=== PATIENT | female | born 1945 | race Caucasian/White ===

== ENCOUNTER 2021-12-15 19:21 | Emergency (ER) | payer MEDICARE, OTHER ==
--- NOTE | 2021-12-15 19:57 | ERPHSYRPT ---
- History of Present Illness Time Seen by Provider: 12/15/21 19:26 Source: patient Exam Limitations: no limitations Patient Subjective Stated Complaint: pt states "The pain began 10 minutes ago. I was worried about a clot." Triage Nursing Assessment: pt ambulated into the er; pt is axo x4; c/o left leg pain; pt states 10/10 pain to left upper leg; pt denies fall or injury to LLE; strong pedal; no redness or warth present to LLE; good cap refill to LLE; tachycardic Physician History: 46 years old female with history of atrial fibrillation not anticoagulated presented to the ER with sudden onset left lateral thigh pain moderate intensity, sharp in nature started almost half an hour prior to arrival, aggravated with movements and feeling better with lying down. Denies any redness swelling leg/lower extremity. No fall or trauma reported. Patient is worried about DVT. Timing/Duration: hour(s) (0.5), sudden, improved Severity: moderate Modifying Factors: Improves With: rest. Worsens With: movement Associated Symptoms: denies symptoms Allergies/Adverse Reactions: Qyqpmox-FAI-McV Reductase Inhibitor [Gxjjrko-Ote-Cjs Reductase Inhibitor] Allergy (Verified 12/15/21 19:31) Lightheadedness Home Medications: Ascorbic Acid 500 mg [Vitamin C 500 MG] 500 mg PO DAILY 04/15/14 [History] Aspirin 81 gm Chew [Baby Aspirin 81 mg Chew] 81 mg PO DAILY 04/15/14 [History] Biotin 1 mcg PO DAILY 04/15/14 [History] Cholecalciferol (Vitamin D3) [Vitamin D] 2,000 unit PO DAILY 04/15/14 [History] Cinnamon Bark [Cinnamon] 1,000 mg PO DAILY 04/15/14 [History] Coconut Oil 1,000 mg PO DAILY 04/15/14 [History] Fish Oil/Dha/Epa [Fish Oil 1,200 mg Fish Oil] 1 each PO DAILY 04/15/14 [History] Lactobacillus Combination No.4 [Probiotic] 1 each PO HS 04/15/14 [History] Lutein 20 mg PO DAILY 04/15/14 [History] Magnesium Oxide/Magnesium [Magnesium 300 mg Capsule] 1 tab PO TID 04/15/14 [History] Metoprolol Tartrate 25 mg PO BID 04/15/14 [History] Ubidecarenone/Vit E Acet [Co Q-10 100 mg Softgel] 2 each PO DAILY 04/15/14 [History] Hx Tetanus, Diphtheria Vaccination/Date Given: No Hx Influenza Vaccination/Date Given: No Hx Pneumococcal Vaccination/Date Given: No Travel Risk - International Travel Have you traveled outside of the country in past 3 weeks: No - Coronavirus Screening Are you exhibiting any of the following symptoms?: No Close contact with a COVID-19 positive Pt in past 14-21 Days: No - Vaccine Status Have you recieved a Covid-19 vaccination: No - Review of Systems Constitutional: No Symptoms Ears, Nose, & Throat: No Symptoms Respiratory: No Symptoms Cardiac: No Symptoms Abdominal/Gastrointestinal: No Symptoms Genitourinary Symptoms: No Symptoms Musculoskeletal: Myalgias Neurological: No Symptoms Psychological: No Symptoms Endocrine: No Symptoms Hematologic/Lymphatic: No Symptoms - Past Medical History Pertinent Past Medical History: Yes Neurological History: No Pertinent History ENT History: Cataracts Cardiac History: High Cholesterol, Other Respiratory History: No Pertinent History Endocrine Medical History: Hypoglycemia Musculoskeletal History: No Pertinent History GI Medical History: No Pertinent History History: No Pertinent History Psycho-Social History: No Pertinent History Female Reproductive Disorders: No Pertinent History Other Medical History: states irreg. heart beat - Past Surgical History Past Surgical History: Yes Neuro Surgical History: No Pertinent History Cardiac: No Pertinent History Respiratory: No Pertinent History Gastrointestinal: No Pertinent History Genitourinary: No Pertinent History Musculoskeletal: Orthopedic Surgery Female Surgical History: No Pertinent History, Other Other Surgical History: left shoulder rotat.cuff repair",vaginal/uterine polyps removed" - Social History Smoking Status: Never smoker Exposure to second hand smoke: No Drug Use: none Patient Lives Alone: No - Nursing Vital Signs Nursing Vital Signs: Initial Vital Signs Temperature 99.2 F 12/15/21 19:31 Pulse Rate 109 H 12/15/21 19:31 Respiratory Rate 24 12/15/21 19:31 Blood Pressure 119/81 12/15/21 19:31 O2 Sat by Pulse Oximetry 100 12/15/21 19:31 Pain Scale Pain Intensity 0 - Physical Exam General Appearance: no apparent distress, alert Eye Exam: PERRL/EOMI Ears, Nose, Throat Exam: normal ENT inspection Neck Exam: normal inspection, supple, full range of motion Respiratory Exam: normal breath sounds, lungs clear Cardiovascular Exam: normal heart sounds, tachycardia, irregular Back Exam: normal inspection, normal range of motion Extremity Exam: normal inspection, normal range of motion, pelvis stable, tenderness (Lt. lateral thigh), No brett's sign Neurologic Exam: alert, oriented x 3, track announcer II-XII nml as tested Skin Exam: normal color SpO2 Interpretation: normal SpO2: 100 O2 Delivery: Room Air Ordered Tests: Active Orders 24 hr Category Date Time Status VENOUS UNILAT/LIMITED EXTREMIT [US] Stat Exams 12/15/21 20:54 Taken - Progress Progress: improved Progress Note: 12/15/21 21:20 DVT ruled out per prelim US report. recommended tylenol as needed and outpatient follow up. Counseled pt/family regarding: diagnosis, need for follow-up, rad results - Departure Departure Disposition: Home Clinical Impression: Leg pain Qualifiers: Laterality: left Qualified Code(s): M79.605 - Pain in left leg Condition: Stable Critical Care Time: No Referrals: VIRIDIANA JIMÉNEZ MD [ACTIVE STAFF] - Follow Up with PCP/3 days Instructions: Deep Vein Thrombosis (Blood Clots in the Legs) Additional Instructions: take Tylenol as needed, outpatient follow up with PCP for re evaluation. return for worsening
[2021-12-15 21:10] VITALS: BP 129/89; PULSE 77
[2021-12-15 21:24] VITALS: O2SAT 100
--- NOTE | 2021-12-16 08:47 | XRAY ---
Indication: Left upper leg pain. Two-dimensional sonogram and color Doppler imaging of the major venous vessels of the left leg performed. Comparison: None No thrombus seen in the examined deep venous vessels of the left leg including greater saphenous vein. Veins demonstrate normal compressibility. Venous waveforms are normal with and without augmentation. Impression: Left leg negative for DVT. Comment: Preliminary report was given.
== END 2021-12-15 21:34 | disposition home or self-care (01) ==
LOC: ED 19:21
DX: M79.652 Pain in left thigh (principal); I48.91 Unspecified atrial fibrillation; E78.5 Hyperlipidemia, unspecified; Z79.899 Other long term (current) drug therapy
CPT/HCPCS: 93971; 99283

== ENCOUNTER 2022-06-16 22:38 | Observation (INO) | payer MEDICARE, OTHER ==
[2022-06-16] MEDS ORDERED: Zofran 4 MG/2 ML VIAL IV ONE (22:53)
--- NOTE | 2022-06-16 23:13 | ERPHSYRPT ---
- History of Present Illness Time Seen by Provider: 06/16/22 22:42 Historian: patient, EMS Exam Limitations: no limitations Patient Subjective Stated Complaint: pt states "I was sitting in the chair and it felt this pressure in the middle of my chest." Triage Nursing Assessment: pt came into the er via ambulance; pt is axo x4; c/o chest pain; pt denies pain; pt states pain was relieved with nitro; pt states "I am under a lot of stress. My went to the intermediate last week. I have to meet with the cancer doctor Sunday."; clear apical pulse; strong carrol radial pulses; strong carrol pedal pulses; clear lung sounds in all lobes; no edema p resent; vitals wnl; skin PDW Physician History: 77-year-old female with a history of atrial fibrillation, recent diagnosis of ovarian cancer on chemotherapy presented in the ER with chief complaint of sudden onset central chest pressure more on the right side almost 30 minutes prior to arrival with associated nausea she rates it was 8/10 intensity, was given nitro and aspirin by EMS and currently almost completely resolved. She took Zofran at home and nausea is better now as well. Denies any difficulty breathing. No history of CAD. Denies any fever chills cough. Patient has port placement on the right side last week. Timing/Duration: hour(s) (0.5), sudden, improved Activities at Onset: rest Quality: pressure Location: substernal, central Chest Pain Radiation: no radiation Severity of Pain-Max: moderate Modifying Factors: Improves With: nitroglycerin Associated Symptoms: nausea, No shortness of breath Prior Chest Pain/Cardiac Workup: no prior chest pain Nitro Today/Relief: 0.4 mg x 1, provided by EMS Aspirin Treatment Today: 81 mg x 4, provided by EMS Allergies/Adverse Reactions: Ejigvds-RRQ-PvG Reductase Inhibitor [Qasjcap-Zla-Oju Reductase Inhibitor] Allergy (Verified 06/16/22 22:47) Lightheadedness Home Medications: Ascorbic Acid 500 mg [Vitamin C 500 MG] 500 mg PO DAILY 04/15/14 [History] Aspirin 81 gm Chew [Baby Aspirin 81 mg Chew] 81 mg PO DAILY 04/15/14 [History] Biotin 1 mcg PO DAILY 04/15/14 [History] Cholecalciferol (Vitamin D3) [Vitamin D] 2,000 unit PO DAILY 04/15/14 [History] Cinnamon Bark [Cinnamon] 1,000 mg PO DAILY 04/15/14 [History] Coconut Oil 1,000 mg PO DAILY 04/15/14 [History] Fish Oil/Dha/Epa [Fish Oil 1,200 mg Fish Oil] 1 each PO DAILY 04/15/14 [History] Lactobacillus Combination No.4 [Probiotic] 1 each PO HS 04/15/14 [History] Lutein 20 mg PO DAILY 04/15/14 [History] Magnesium Oxide/Magnesium [Magnesium 300 mg Capsule] 1 tab PO DAILY 04/15/14 [History] Metoprolol Tartrate 25 mg PO BID 04/15/14 [History] Ubidecarenone/Vit E Acet [Co Q-10 100 mg Softgel] 1 each PO DAILY 04/15/14 [History] ALPRAZolam 0.25 MG [xanAX 0.25 MG] 0.25 mg PO DAILY PRN 06/17/22 [History] Lisinopril 10 mg [Zestril 10 MG] 10 mg PO DAILY 06/17/22 [History] Ondansetron [Ondansetron Odt ] 4 mg SL Q6H PRN PRN 06/17/22 [History] Prochlorperazine Maleate [Compazine] 10 mg PO Q6HPRN PRN 06/17/22 [History] dexAMETHasone [Dexamethasone] 4 mg PO HS PRN PRN 06/17/22 [History] Hx Tetanus, Diphtheria Vaccination/Date Given: No Hx Influenza Vaccination/Date Given: No Hx Pneumococcal Vaccination/Date Given: No Travel Risk - International Travel Have you traveled outside of the country in past 3 weeks: No - Coronavirus Screening Are you exhibiting any of the following symptoms?: No Close contact with a COVID-19 positive Pt in past 14-21 Days: No - Vaccine Status Have you recieved a Covid-19 vaccination: No - Review of Systems Constitutional: No Symptoms Eyes: No Symptoms Ears, Nose, & Throat: No Symptoms Respiratory: No Symptoms Cardiac: Chest Pain Abdominal/Gastrointestinal: No Symptoms Genitourinary Symptoms: No Symptoms Musculoskeletal: No Symptoms Neurological: No Symptoms Psychological: Anxiety Endocrine: No Symptoms Hematologic/Lymphatic: No Symptoms Immunological/Allergic: No Symptoms - Past Medical History Pertinent Past Medical History: Yes Neurological History: No Pertinent History ENT History: Cataracts Cardiac History: High Cholesterol, Other Respiratory History: No Pertinent History Endocrine Medical History: Hypoglycemia Musculoskeletal History: No Pertinent History GI Medical History: No Pertinent History History: No Pertinent History Psycho-Social History: No Pertinent History Female Reproductive Disorders: No Pertinent History Other Medical History: states irreg. heart beat - Past Surgical History Past Surgical History: Yes Neuro Surgical History: No Pertinent History Cardiac: No Pertinent History Respiratory: No Pertinent History Gastrointestinal: No Pertinent History Genitourinary: No Pertinent History Musculoskeletal: Orthopedic Surgery Female Surgical History: No Pertinent History, Other Other Surgical History: left shoulder rotat.cuff repair",vaginal/uterine polyps removed" - Social History Smoking Status: Never smoker Exposure to second hand smoke: No Drug Use: none Patient Lives Alone: Yes - Nursing Vital Signs Nursing Vital Signs: Initial Vital Signs Temperature 98.2 F 06/16/22 22:39 Pulse Rate 84 06/16/22 22:39 Respiratory Rate 16 06/16/22 22:39 Blood Pressure 96/65 06/16/22 22:39 O2 Sat by Pulse Oximetry 96 06/16/22 22:39 Pain Scale Pain Intensity 2 - Physical Exam General Appearance: no apparent distress, alert Eye Exam: PERRL/EOMI Ears, Nose, Throat Exam: normal ENT inspection Neck Exam: normal inspection, supple, full range of motion Respiratory Exam: normal breath sounds, lungs clear Cardiovascular Exam: regular rate/rhythm, normal heart sounds Gastrointestinal/Abdomen Exam: soft, normal bowel sounds, No tenderness Back Exam: normal inspection Extremity Exam: normal inspection, normal range of motion, pelvis stable Neurologic Exam: alert, oriented x 3, cooperative Skin Exam: normal color SpO2 Interpretation: normal SpO2: 96 O2 Delivery: Room Air Ordered Tests: Medication Summary Discontinued Medications Generic Name Dose Route Start Last Admin Trade Name Freq PRN Reason Stop Dose Admin Acetaminophen 650 mg 06/17/22 01:56 Acetaminophen 325 Mg Tablet PO 07/17/22 01:55 Q4H PRN PRN PAIN AND/OR FEVER Albuterol/Ipratropium 3 ml 06/17/22 01:56 Ipratropium/Albuterol Sulfate 3 Ml Ampul.Neb IH 07/17/22 01:55 Q4HPRN PRN SHORTNESS OF BREATH/WHEEZING Sodium Chloride 500 mls @ 500 mls/hr 06/17/22 00:17 06/17/22 01:40 Sodium Chloride 0.9% 500 Ml IV 06/17/22 01:16 Infused .Q1H ONE Infusion Sodium Chloride Confirm 06/17/22 00:18 Sodium Chloride 0.9% 500 Ml Administered 06/17/22 00:19 Dose 500 mls @ ud IV .STK-MED ONE Levofloxacin/Dextrose 500 mg in 100 mls @ 100 mls/hr 06/17/22 01:01 06/17/22 01:14 Levofloxacin 500mg/100ml D5w IV 06/17/22 02:00 100 mls/hr STAT STA 100 mls/hr Administration Levofloxacin/Dextrose Confirm 06/17/22 01:14 Levofloxacin 500mg/100ml D5w Administered 06/17/22 01:15 Dose 500 mg in 100 mls @ ud IV .STK-MED ONE Sodium Chloride 1,000 mls @ 100 mls/hr 06/17/22 01:56 06/17/22 02:24 Sodium Chloride 0.9% 1000 Ml IV 07/17/22 01:55 100 mls/hr .Q10H MAHSA Administration Morphine Sulfate 2 mg 06/17/22 01:56 Morphine Sulfate 2 Mg/Ml Inj IV 06/22/22 01:55 Q4H PRN PRN PAIN Ondansetron HCl 4 mg 06/16/22 22:53 06/16/22 23:07 Ondansetron Hcl 4 Mg/2 Ml Vial IV 06/16/22 22:54 Not Given STAT ONE Ondansetron HCl 4 mg 06/17/22 01:56 Ondansetron Hcl 4 Mg/2 Ml Vial IV 07/17/22 01:55 Q6H PRN PRN NAUSEA/VOMITING Pantoprazole Sodium 40 mg 06/17/22 10:00 06/17/22 09:50 Pantoprazole 40 Mg Vial IV 07/17/22 09:59 40 mg Q24H10 MAHSA Administration Lab/Rad Data: Laboratory Result Diagrams 06/16/22 23:15 06/16/22 23:15 Laboratory Results 06/17/22 06/16/22 06/16/22 Range/Units 01:44 23:46 23:15 WBC (4.0-10.5) x10^3/uL RBC (4.1-5.4) x10^6/uL Hgb (12.0-16.0) g/dL Hct (35-47) % MCV (78-100) fL MCH (26-32) pg MCHC (32-36) g/dL RDW (11.5-14.0) % Plt Count (150-450) x10^3/uL MPV (7.5-11.0) fL Segmented Neutrophils (36.0-66.0) % Band Neutrophils (0.0-2.0) % Lymphocytes (Manual) (24-44) % Monocytes (Manual) (0.0-12.0) % Basophils (Manual) (0.0-1.0) % Toxic Granulation Platelet Estimate (NORMAL) RBC Morphology Anisocytosis Sodium (137-145) mmol/L Potassium (3.5-5.1) mmol/L Chloride (98-107) mmol/L Carbon Dioxide (22-30) mmol/L Anion Gap (5-15) MEQ/L BUN (7-17) mg/dL Creatinine (0.52-1.04) mg/dL Estimated GFR ML/MIN Glucose (74-106) mg/dL Calcium (8.4-10.2) mg/dL Total Bilirubin (0.2-1.3) mg/dL AST (14-36) U/L ALT (0-35) U/L Alkaline Phosphatase (38-126) U/L Troponin I < 0.012 (0.000-0.034) ng/mL NT-Pro-B Natriuret Pep (0-1800) pg/mL Serum Total Protein (6.3-8.2) g/dL Albumin (3.5-5.0) g/dL Procalcitonin 0.377 H (0.030-0.080) ng/mL Influenza Type A Ag NEGATIVE (NEGATIVE) Influenza Type B Ag NEGATIVE (NEGATIVE) RSV (PCR) NEGATIVE (Negative) SARS-CoV-2 (PCR) NEGATIVE (NEGATIVE) 06/16/22 06/16/22 06/16/22 Range/Units 23:15 23:15 23:15 WBC 20.7 H (4.0-10.5) x10^3/uL RBC 3.26 L (4.1-5.4) x10^6/uL Hgb 9.0 L (12.0-16.0) g/dL Hct 29.0 L (35-47) % MCV 89.0 (78-100) fL MCH 27.6 (26-32) pg MCHC 31.0 L (32-36) g/dL RDW 15.0 H (11.5-14.0) % Plt Count 217 (150-450) x10^3/uL MPV 10.0 (7.5-11.0) fL Segmented Neutrophils 73 H (36.0-66.0) % Band Neutrophils 7 H (0.0-2.0) % Lymphocytes (Manual) 8 L (24-44) % Monocytes (Manual) 11 (0.0-12.0) % Basophils (Manual) 1 (0.0-1.0) % Toxic Granulation 1+ Platelet Estimate NORMAL (NORMAL) RBC Morphology ABNORMAL Anisocytosis 1+ Sodium 130 L (137-145) mmol/L Potassium 4.2 (3.5-5.1) mmol/L Chloride 99 (98-107) mmol/L Carbon Dioxide 21 L (22-30) mmol/L Anion Gap 14.2 (5-15) MEQ/L BUN 18 H (7-17) mg/dL Creatinine 1.03 (0.52-1.04) mg/dL Estimated GFR 55.2 ML/MIN Glucose 102 (74-106) mg/dL Calcium 8.7 (8.4-10.2) mg/dL Total Bilirubin 0.50 (0.2-1.3) mg/dL AST 24 (14-36) U/L ALT 11 (0-35) U/L Alkaline Phosphatase 106 (38-126) U/L Troponin I < 0.012 (0.000-0.034) ng/mL NT-Pro-B Natriuret Pep 396 (0-1800) pg/mL Serum Total Protein 6.7 (6.3-8.2) g/dL Albumin 3.6 (3.5-5.0) g/dL Procalcitonin (0.030-0.080) ng/mL Influenza Type A Ag (NEGATIVE) Influenza Type B Ag (NEGATIVE) RSV (PCR) (Negative) SARS-CoV-2 (PCR) (NEGATIVE) - Progress Progress: improved Air Movement: good Progress Note: 06/17/22 01:00 Patient chest pain is better on presentation in the ER. EKG no ST elevation and negative initial troponin. Chest x-ray no acute cardiopulmonary findings reviewed by me, official report is pending. Other work-up showed white count of 20 but no obvious focus of infection and no shortness of breath. This could be related to recent chemotherapy/steroid induced versus infection as she has elevated procalcitonin. Will obtain cultures. She is given a dose of Levaquin. Discussed with Dr. Lozoya patient is being admitted for observation. Blood Culture(s) Obtained: No Antibiotics given: No Discussed with Dr.: Jeter Counseled pt/family regarding: lab results, diagnosis, rad results - Departure Departure Disposition: Observation Clinical Impression: Chest pain, rule out acute myocardial infarction, Leukocytosis Condition: Stable Critical Care Time: No
[2022-06-16 23:17] LABS: Mean Corpuscular Hemoglobin 27.6 pg (26-32); Platelet Count 217 x10^3/uL (150-450); Red Blood Count 3.26 x10^6/uL (4.1-5.4); White Blood Count 20.7 x10^3/uL (4.0-10.5)
[2022-06-16 23:38] LABS: ALBUMIN 3.6 g/dL (3.5-5.0); ANION GAP 14.2 MEQ/L (5-15); BILIRUBIN,TOTAL 0.5 mg/dL (0.2-1.3); Calcium 8.7 mg/dL (8.4-10.2); Creatinine 1 1.03 mg/dL (0.52-1.04); EST GLOMERULAR FILTRATION RATE 55.2 ML/MIN; Potassium 4.2 mmol/L (3.5-5.1); Total Protein 6.7 g/dL (6.3-8.2)
[2022-06-17] MEDS ORDERED: Sodium Chloride 0.9% 500 ML 500 ML IV ONE ×2 (00:17→00:18)
[2022-06-17 00:25] LABS: INFLUENZA A NEGATIVE (NEGATIVE); INFLUENZA B NEGATIVE (NEGATIVE); RESPIRATORY SYNCTIAL VIRUS NEGATIVE (Negative); SARS-CoV-2 Xpert Express NEGATIVE (NEGATIVE)
[2022-06-17 00:41] LABS: ANISOCYTOSIS 1+; BAND 7 % (0.0-2.0); Basophil 1 % (0.0-1.0); Lymphocytes 8 % (24-44); Monocyte 11 % (0.0-12.0); Platelet Estimate NORMAL (NORMAL); Total Cells Counted 100; Toxic Granulation 1+
[2022-06-17] MEDS ORDERED: Levofloxacin 500MG/100ML D5W 500 MG/100 ML BAG IV STA (01:01)
[2022-06-17] MEDS ORDERED: Levofloxacin 500MG/100ML D5W 500 MG/100 ML BAG IV ONE (01:14)
[2022-06-17] MEDS ORDERED: MORPHINE SULFATE 2 MG INJ IV PRN (01:56)
[2022-06-17] MEDS ORDERED: Zofran 4 MG/2 ML VIAL IV PRN (01:56)
[2022-06-17] MEDS ORDERED: DUONEB 0.5-3 MG/3 ml Neb IH PRN (01:56)
[2022-06-17] MEDS ORDERED: Sodium Chloride 0.9% 1000 ML 1,000 ML IV SCH (01:56)
[2022-06-17] MEDS ORDERED: TYLENOL 325 MG PO PRN (01:56)
--- NOTE | 2022-06-17 07:38 | XRAY ---
Indication: Chest pain. Comparison: January 13, 2011 Portable chest remains clear again with a few incidental tiny calcified granulomas. Heart not enlarged with new right Port-A-Cath. Bony thorax intact with mild osteopenia and degenerative changes. Impression: Nonacute chest with chronic features.
[2022-06-17 08:08] LABS: Hematocrit 26.9 % (35-47); Hemoglobin 8.2 g/dL (12.0-16.0); Mean Cell Volume 89.4 fL (78-100); Mean Corpuscular Hemoglobin 27.2 pg (26-32); Mean Corpuscular Hgb Concent. 30.5 g/dL (32-36); Mean Platelet Volume 10.8 fL (7.5-11.0); Platelet Count 201 x10^3/uL (150-450); Red Blood Count 3.01 x10^6/uL (4.1-5.4); Red Cell Distribution Width 15.1 % (11.5-14.0); White Blood Count 21.2 x10^3/uL (4.0-10.5)
[2022-06-17 08:09] LABS: ALBUMIN 3.3 g/dL (3.5-5.0); ALKALINE PHOSPHATASE 91 U/L (38-126); ANION GAP 12.9 MEQ/L (5-15); BLOOD UREA NITROGEN 16 mg/dL (7-17); CHLORIDE 103 mmol/L (98-107); Calcium 8.2 mg/dL (8.4-10.2); Carbon Dioxide 22 mmol/L (22-30); Creatinine 1 0.94 mg/dL (0.52-1.04); EST GLOMERULAR FILTRATION RATE > 60.0 ML/MIN; Glucose 84 mg/dL (74-106); Potassium 4.4 mmol/L (3.5-5.1); SGOT/AST 23 U/L (14-36); SGPT/ALT 10 U/L (0-35); SODIUM 134 mmol/L (137-145); Total Protein 6.1 g/dL (6.3-8.2)
[2022-06-17] MEDS ORDERED: PROTONIX 40 MG IV IV SCH (10:00)
[2022-06-17 12:21] VITALS: BP 119/66; PULSE 95; O2SAT 96
--- NOTE | 2022-06-17 12:21 | PCM.SSS ---
History of Present Illness - Chief Complaint Chief Complaint: Chest pain rule out History of Present Illness: is a 77 year old female currently under treatment for ovarian cancer who presented to the ER with chest pain, she had NE ruled out overnight and feels well this morning. she denies any chest pain or shortness of breath. states she feels well, she states food doesn't taste good since she started chemo but has no other complaints today. she wants to go home. - Review of Systems Constitutional: No Fever, No Chills Respiratory: No Cough, No Short Of Breath Cardiac: Chest Pain Abdominal/Gastrointestinal: No Abdominal Pain, No Nausea, No Vomiting, No Diarrhea Skin: No Rash All Other Systems: Reviewed and Negative Medications & Allergies Home Medications: Home Medication List Ascorbic Acid 500 mg [Vitamin C 500 MG] 500 mg PO DAILY 04/15/14 [History Confirmed 06/17/22] Aspirin 81 gm Chew [Baby Aspirin 81 mg Chew] 81 mg PO DAILY 04/15/14 [History Confirmed 06/17/22] Biotin 1 mcg PO DAILY 04/15/14 [History Confirmed 06/17/22] Cholecalciferol (Vitamin D3) [Vitamin D] 2,000 unit PO DAILY 04/15/14 [History Confirmed 06/17/22] Cinnamon Bark [Cinnamon] 1,000 mg PO DAILY 04/15/14 [History Confirmed 06/17/22] Coconut Oil 1,000 mg PO DAILY 04/15/14 [History Confirmed 06/17/22] Fish Oil/Dha/Epa [Fish Oil 1,200 mg Fish Oil] 1 each PO DAILY 04/15/14 [History Confirmed 06/17/22] Lactobacillus Combination No.4 [Probiotic] 1 each PO HS 04/15/14 [History C onfirmed 06/17/22] Lutein 20 mg PO DAILY 04/15/14 [History Confirmed 06/17/22] Magnesium Oxide/Magnesium [Magnesium 300 mg Capsule] 1 tab PO DAILY 04/15/14 [History Confirmed 06/17/22] Metoprolol Tartrate 25 mg PO BID 04/15/14 [History Confirmed 06/17/22] Ubidecarenone/Vit E Acet [Co Q-10 100 mg Softgel] 1 each PO DAILY 08/20/14 [History Confirmed 06/17/22] ALPRAZolam 0.25 MG [xanAX 0.25 MG] 0.25 mg PO DAILY PRN 06/17/22 [History Confirmed 06/17/22] Lisinopril 10 mg [Zestril 10 MG] 10 mg PO DAILY 06/17/22 [History Confirmed 06/17/22] Ondansetron [Ondansetron Odt ] 4 mg SL Q6H PRN PRN 06/17/22 [History Confirmed 06/17/22] Prochlorperazine Maleate [Compazine] 10 mg PO Q6HPRN PRN 06/17/22 [History Confirmed 06/17/22] dexAMETHasone [Dexamethasone] 4 mg PO HS PRN PRN 06/17/22 [History Confirmed 06/17/22] Allergies/Adverse Reactions: Allergies Allergy/AdvReac Type Severity Reaction Status Date / Time [id number] Reductase Allergy Lightheaded Verified 06/16/22 22:47 Inhibitor ness [Xximrpy-[id number]-Ddk Reductase Inhibitor] - Past Medical History Past Medical History: Yes Neurological History: No Pertinent History ENT History: Cataracts Cardiac History: Angina, Hypertension Respiratory History: No Pertinent History Endocrine Medical History: No Pertinent History Musculoskelatal History: No Pertinent History GI Medical History: No Pertinent History History: No Pertinent History Pyscho-Social History: Anxiety, Depression Reproductive Disorders: Ovarian Cancer Comment: states irreg. heart beat - Female History Are you now?: No - Past Surgical History Past Surgical History: Yes Neuro Surgical History: No Pertinent History Cardiac History: Cardiac Catheterization Respiratory Surgery: Chest Surgery GI Surgical History: No Pertinent History Genitourinary Surgical Hx: No Pertinent History Musculskeletal Surgical Hx: No Pertinent History Female Surgical History: No Pertinent History Other Surgical History: left shoulder rotat.cuff repair",vaginal/uterine polyps removed" - Social History Smoking Status: Never smoker Exposure to second hand smoke: Yes Alcohol: None Drug Use: none - Physical Exam Vital Signs: Vital Signs - 24 hr Temp Pulse Pulse Resp BP Pulse Ox 06/17/22 07:23 96.4 F 73 16 103/57 95 06/17/22 02:24 97.1 F 69 18 108/60 95 06/17/22 01:04 96 06/17/22 01:00 74 16 99/60 97 06/17/22 00:00 72 20 88/56 97 06/16/22 23:48 68 12 100/63 97 06/16/22 22:39 98.2 F 84 84 16 96/65 96 General Appearance: no apparent distress, alert Neurologic Exam: alert, oriented x 3 Respiratory Exam: normal breath sounds, lungs clear, No respiratory distress Cardiovascular Exam: regular rate/rhythm, normal heart sounds, normal peripheral pulses Gastrointestinal/Abdomen Exam: soft, normal bowel sounds, No tenderness, No mass Extremity Exam: normal inspection, normal range of motion, pelvis stable Results - Labs Lab/Micro Results: Lab Results-Last 24 Hours 06/16/22 06/16/22 06/16/22 Range/Units 23:15 23:15 23:15 WBC 20.7 H (4.0-10.5) x10^3/uL RBC 3.26 L (4.1-5.4) x10^6/uL Hgb 9.0 L (12.0-16.0) g/dL Hct 29.0 L (35-47) % MCV 89.0 (78-100) fL MCH 27.6 (26-32) pg MCHC 31.0 L (32-36) g/dL RDW 15.0 H (11.5-14.0) % Plt Count 217 (150-450) x10^3/uL MPV 10.0 (7.5-11.0) fL Segmented Neutrophils 73 H (36.0-66.0) % Band Neutrophils 7 H (0.0-2.0) % Lymphocytes (Manual) 8 L (24-44) % Monocytes (Manual) 11 (0.0-12.0) % Basophils (Manual) 1 (0.0-1.0) % Toxic Granulation 1+ Platelet Estimate NORMAL (NORMAL) RBC Morphology ABNORMAL Anisocytosis 1+ Sodium 130 L (137-145) mmol/L Potassium 4.2 (3.5-5.1) mmol/L Chloride 99 (98-107) mmol/L Carbon Dioxide 21 L (22-30) mmol/L Anion Gap 14.2 (5-15) MEQ/L BUN 18 H (7-17) mg/dL Creatinine 1.03 (0.52-1.04) mg/dL Estimated GFR 55.2 ML/MIN Glucose 102 (74-106) mg/dL Calcium 8.7 (8.4-10.2) mg/dL Total Bilirubin 0.50 (0.2-1.3) mg/dL AST 24 (14-36) U/L ALT 11 (0-35) U/L Alkaline Phosphatase 106 (38-126) U/L Troponin I < 0.012 (0.000-0.034) ng/mL NT-Pro-B Natriuret Pep 396 (0-1800) pg/mL Serum Total Protein 6.7 (6.3-8.2) g/dL Albumin 3.6 (3.5-5.0) g/dL Procalcitonin (0.030-0.080) ng/mL Influenza Type A Ag (NEGATIVE) Influenza Type B Ag (NEGATIVE) RSV (PCR) (Negative) SARS-CoV-2 (PCR) (NEGATIVE) 06/16/22 06/16/22 06/17/22 Range/Units 23:15 23:46 01:44 WBC (4.0-10.5) x10^3/uL RBC (4.1-5.4) x10^6/uL Hgb (12.0-16.0) g/dL Hct (35-47) % MCV (78-100) fL MCH (26-32) pg MCHC (32-36) g/dL RDW (11.5-14.0) % Plt Count (150-450) x10^3/uL MPV (7.5-11.0) fL Segmented Neutrophils (36.0-66.0) % Band Neutrophils (0.0-2.0) % Lymphocytes (Manual) (24-44) % Monocytes (Manual) (0.0-12.0) % Basophils (Manual) (0.0-1.0) % Toxic Granulation Platelet Estimate (NORMAL) RBC Morphology Anisocytosis Sodium (137-145) mmol/L Potassium (3.5-5.1) mmol/L Chloride (98-107) mmol/L Carbon Dioxide (22-30) mmol/L Anion Gap (5-15) MEQ/L BUN (7-17) mg/dL Creatinine (0.52-1.04) mg/dL Estimated GFR ML/MIN Glucose (74-106) mg/dL Calcium (8.4-10.2) mg/dL Total Bilirubin (0.2-1.3) mg/dL AST (14-36) U/L ALT (0-35) U/L Alkaline Phosphatase (38-126) U/L Troponin I < 0.012 (0.000-0.034) ng/mL NT-Pro-B Natriuret Pep (0-1800) pg/mL Serum Total Protein (6.3-8.2) g/dL Albumin (3.5-5.0) g/dL Procalcitonin 0.377 H (0.030-0.080) ng/mL Influenza Type A Ag NEGATIVE (NEGATIVE) Influenza Type B Ag NEGATIVE (NEGATIVE) RSV (PCR) NEGATIVE (Negative) SARS-CoV-2 (PCR) NEGATIVE (NEGATIVE) 06/17/22 06/17/22 06/17/22 Range/Units 07:25 07:25 07:25 WBC 21.2 H (4.0-10.5) x10^3/uL RBC 3.01 L (4.1-5.4) x10^6/uL Hgb 8.2 L (12.0-16.0) g/dL Hct 26.9 L (35-47) % MCV 89.4 (78-100) fL MCH 27.2 (26-32) pg MCHC 30.5 L (32-36) g/dL RDW 15.1 H (11.5-14.0) % Plt Count 201 (150-450) x10^3/uL MPV 10.8 (7.5-11.0) fL Segmented Neutrophils (36.0-66.0) % Band Neutrophils (0.0-2.0) % Lymphocytes (Manual) (24-44) % Monocytes (Manual) (0.0-12.0) % Basophils (Manual) (0.0-1.0) % Toxic Granulation Platelet Estimate (NORMAL) RBC Morphology Anisocytosis Sodium 134 L (137-145) mmol/L Potassium 4.4 (3.5-5.1) mmol/L Chloride 103 (98-107) mmol/L Carbon Dioxide 22 (22-30) mmol/L Anion Gap 12.9 (5-15) MEQ/L BUN 16 (7-17) mg/dL Creatinine 0.94 (0.52-1.04) mg/dL Estimated GFR > 60.0 ML/MIN Glucose 84 (74-106) mg/dL Calcium 8.2 L (8.4-10.2) mg/dL Total Bilirubin 0.30 (0.2-1.3) mg/dL AST 23 (14-36) U/L ALT 10 (0-35) U/L Alkaline Phosphatase 91 (38-126) U/L Troponin I < 0.012 (0.000-0.034) ng/mL NT-Pro-B Natriuret Pep (0-1800) pg/mL Serum Total Protein 6.1 L (6.3-8.2) g/dL Albumin 3.3 L (3.5-5.0) g/dL Procalcitonin (0.030-0.080) ng/mL Influenza Type A Ag (NEGATIVE) Influenza Type B Ag (NEGATIVE) RSV (PCR) (Negative) SARS-CoV-2 (PCR) (NEGATIVE) - Radiology Impressions Radiology Exams & Impressions: Radiology Procedures Category Date Time Status CHEST 1 VIEW (PORTABLE) Stat Exams 06/16/22 22:53 Completed Assessment/Plan (1) Chest pain, rule out acute myocardial infarction Current Visit: Yes Status: Acute Assessment & Plan: NE ruled out, ok to go home and f/u with PCP Code(s): R07.9 - CHEST PAIN, UNSPECIFIED (2) Leukocytosis Current Visit: Yes Status: Acute Assessment & Plan: secondary to her ovarian cancer diagnosis and treatment presumably, no source of infection present Code(s): D72.829 - ELEVATED WHITE BLOOD CELL COUNT, UNSPECIFIED Hospital Summary - Vitals & Intake/Output Vital Signs: Vital Signs Temperature 96.4 F 06/17/22 07:23 Pulse Rate 73 06/17/22 07:23 Respiratory Rate 16 06/17/22 07:23 Blood Pressure 103/57 06/17/22 07:23 O2 Sat by Pulse Oximetry 95 06/17/22 07:23 Intake & Output: Intake & Output 06/15/22 06/16/22 06/17/22 06/18/22 11:59 11:59 11:59 11:59 Intake Total 1010 Output Total 300 Balance 710 Weight 61.8 kg - Lab Result Diagrams: 06/17/22 07:25 10/22/22 07:25 Lab Results-Last 24 Hrs: Lab Results-Last 24 Hours 06/16/22 06/16/22 06/16/22 Range/Units 23:15 23:15 23:15 WBC 20.7 H (4.0-10.5) x10^3/uL RBC 3.26 L (4.1-5.4) x10^6/uL Hgb 9.0 L (12.0-16.0) g/dL Hct 29.0 L (35-47) % MCV 89.0 (78-100) fL MCH 27.6 (26-32) pg MCHC 31.0 L (32-36) g/dL RDW 15.0 H (11.5-14.0) % Plt Count 217 (150-450) x10^3/uL MPV 10.0 (7.5-11.0) fL Segmented Neutrophils 73 H (36.0-66.0) % Band Neutrophils 7 H (0.0-2.0) % Lymphocytes (Manual) 8 L (24-44) % Monocytes (Manual) 11 (0.0-12.0) % Basophils (Manual) 1 (0.0-1.0) % Toxic Granulation 1+ Platelet Estimate NORMAL (NORMAL) RBC Morphology ABNORMAL Anisocytosis 1+ Sodium 130 L (137-145) mmol/L Potassium 4.2 (3.5-5.1) mmol/L Chloride 99 (98-107) mmol/L Carbon Dioxide 21 L (22-30) mmol/L Anion Gap 14.2 (5-15) MEQ/L BUN 18 H (7-17) mg/dL Creatinine 1.03 (0.52-1.04) mg/dL Estimated GFR 55.2 ML/MIN Glucose 102 (74-106) mg/dL Calcium 8.7 (8.4-10.2) mg/dL Total Bilirubin 0.50 (0.2-1.3) mg/dL AST 24 (14-36) U/L ALT 11 (0-35) U/L Alkaline Phosphatase 106 (38-126) U/L Troponin I < 0.012 (0.000-0.034) ng/mL NT-Pro-B Natriuret Pep 396 (0-1800) pg/mL Serum Total Protein 6.7 (6.3-8.2) g/dL Albumin 3.6 (3.5-5.0) g/dL Procalcitonin (0.030-0.080) ng/mL Influenza Type A Ag (NEGATIVE) Influenza Type B Ag (NEGATIVE) RSV (PCR) (Negative) SARS-CoV-2 (PCR) (NEGATIVE) 06/16/22 06/16/22 06/17/22 Range/Units 23:15 23:46 01:44 WBC (4.0-10.5) x10^3/uL RBC (4.1-5.4) x10^6/uL Hgb (12.0-16.0) g/dL Hct (35-47) % MCV (78-100) fL MCH (26-32) pg MCHC (32-36) g/dL RDW (11.5-14.0) % Plt Count (150-450) x10^3/uL MPV (7.5-11.0) fL Segmented Neutrophils (36.0-66.0) % Band Neutrophils (0.0-2.0) % Lymphocytes (Manual) (24-44) % Monocytes (Manual) (0.0-12.0) % Basophils (Manual) (0.0-1.0) % Toxic Granulation Platelet Estimate (NORMAL) RBC Morphology Anisocytosis Sodium (137-145) mmol/L Potassium (3.5-5.1) mmol/L Chloride (98-107) mmol/L Carbon Dioxide (22-30) mmol/L Anion Gap (5-15) MEQ/L BUN (7-17) mg/dL Creatinine (0.52-1.04) mg/dL Estimated GFR ML/MIN Glucose (74-106) mg/dL Calcium (8.4-10.2) mg/dL Total Bilirubin (0.2-1.3) mg/dL AST (14-36) U/L ALT (0-35) U/L Alkaline Phosphatase (38-126) U/L Troponin I < 0.012 (0.000-0.034) ng/mL NT-Pro-B Natriuret Pep (0-1800) pg/mL Serum Total Protein (6.3-8.2) g/dL Albumin (3.5-5.0) g/dL Procalcitonin 0.377 H (0.030-0.080) ng/mL Influenza Type A Ag NEGATIVE (NEGATIVE) Influenza Type B Ag NEGATIVE (NEGATIVE) RSV (PCR) NEGATIVE (Negative) SARS-CoV-2 (PCR) NEGATIVE (NEGATIVE) 06/17/22 06/17/22 06/17/22 Range/Units 07:25 07:25 07:25 WBC 21.2 H (4.0-10.5) x10^3/uL RBC 3.01 L (4.1-5.4) x10^6/uL Hgb 8.2 L (12.0-16.0) g/dL Hct 26.9 L (35-47) % MCV 89.4 (78-100) fL MCH 27.2 (26-32) pg MCHC 30.5 L (32-36) g/dL RDW 15.1 H (11.5-14.0) % Plt Count 201 (150-450) x10^3/uL MPV 10.8 (7.5-11.0) fL Segmented Neutrophils (36.0-66.0) % Band Neutrophils (0.0-2.0) % Lymphocytes (Manual) (24-44) % Monocytes (Manual) (0.0-12.0) % Basophils (Manual) (0.0-1.0) % Toxic Granulation Platelet Estimate (NORMAL) RBC Morphology Anisocytosis Sodium 134 L (137-145) mmol/L Potassium 4.4 (3.5-5.1) mmol/L Chloride 103 (98-107) mmol/L Carbon Dioxide 22 (22-30) mmol/L Anion Gap 12.9 (5-15) MEQ/L BUN 16 (7-17) mg/dL Creatinine 0.94 (0.52-1.04) mg/dL Estimated GFR > 60.0 ML/MIN Glucose 84 (74-106) mg/dL Calcium 8.2 L (8.4-10.2) mg/dL Total Bilirubin 0.30 (0.2-1.3) mg/dL AST 23 (14-36) U/L ALT 10 (0-35) U/L Alkaline Phosphatase 91 (38-126) U/L Troponin I < 0.012 (0.000-0.034) ng/mL NT-Pro-B Natriuret Pep (0-1800) pg/mL Serum Total Protein 6.1 L (6.3-8.2) g/dL Albumin 3.3 L (3.5-5.0) g/dL Procalcitonin (0.030-0.080) ng/mL Influenza Type A Ag (NEGATIVE) Influenza Type B Ag (NEGATIVE) RSV (PCR) (Negative) SARS-CoV-2 (PCR) (NEGATIVE) - Radiology Exams Ordered Rad Exams-Entire Visit: Radiology Procedures Category Date Time Status CHEST 1 VIEW (PORTABLE) Stat Exams 06/16/22 22:53 Completed - Discharge Disposition: Home, Self-Care Condition: Stable Prescriptions: Continue Cinnamon Bark [Cinnamon] 1,000 mg PO DAILY Ubidecarenone/Vit E Acet [Co Q-10 100 mg Softgel] 1 each PO DAILY Lactobacillus Combination No.4 [Probiotic] 1 each PO HS Fish Oil/Dha/Epa [Fish Oil 1,200 mg Fish Oil] 1 each PO DAILY Cholecalciferol (Vitamin D3) [Vitamin D] 2,000 unit PO DAILY Ascorbic Acid 500 mg [Vitamin C 500 MG] 500 mg PO DAILY Lutein 20 mg PO DAILY Coconut Oil 1,000 mg PO DAILY Magnesium Oxide/Magnesium [Magnesium 300 mg Capsule] 1 tab PO DAILY Metoprolol Tartrate 25 mg PO BID Aspirin 81 gm Chew [Baby Aspirin 81 mg Chew] 81 mg PO DAILY Biotin 1 mcg PO DAILY Lisinopril 10 mg [Zestril 10 MG] 10 mg PO DAILY Ondansetron [Ondansetron Odt ] 4 mg SL Q6H PRN PRN PRN Reason: Nausea dexAMETHasone [Dexamethasone] 4 mg PO HS PRN PRN PRN Reason: cancer Prochlorperazine Maleate [Compazine] 10 mg PO Q6HPRN PRN PRN Reason: Nausea ALPRAZolam 0.25 MG [xanAX 0.25 MG] 0.25 mg PO DAILY PRN PRN Reason: Anxiety Instructions: Chest Pain (DC) Follow up with: NICHELLE HILL NP [Primary Care Provider] - Call for Appointment (CALL Sunday06/19/22 AND SCHEDULE FOLLOW UP APPOINTMENT. ) Forms: Discharge Instructions
[2022-06-17 14:40] LABS: BAND 17 % (0.0-2.0); Lymphocytes 4 % (24-44); Monocyte 6 % (0.0-12.0); Platelet Estimate NORMAL (NORMAL); Total Cells Counted 100
== END 2022-06-17 12:24 | disposition home or self-care (01) ==
LOC: ED 22:38 → MED SURG 06-17 01:55
PROVIDERS: ADMIT Family Medicine; ATTEND Family Medicine
DX: R07.9 Chest pain, unspecified (principal); C56.9 Malignant neoplasm of unspecified ovary; D72.829 Elevated white blood cell count, unspecified; I10 Essential (primary) hypertension; Z79.899 Other long term (current) drug therapy; Z20.828 Contact with and (suspected) exposure to other viral communicable diseases
CPT/HCPCS: 0241U; 36000; 36415; 71045; 80053; 83880; 84145; 84484; 85025; 87040; 93005; 93041; 93268; 96360; 96365; 99285; G0378; J1956

== ENCOUNTER 2022-10-04 19:58 | Observation (INO) | payer MEDICARE, OTHER ==
[2022-10-04] MEDS ORDERED: MORPHINE SULFATE 2 MG INJ IV ONE (20:23)
[2022-10-04] MEDS ORDERED: Zofran 4 MG/2 ML VIAL IV ONE (20:23)
[2022-10-04] MEDS ORDERED: MORPHINE SULFATE 2 MG INJ ONE (20:27)
[2022-10-04] MEDS ORDERED: Sodium Chloride 0.9% 1000 ML 1,000 ML ONE (20:27)
[2022-10-04] MEDS ORDERED: Zofran 4 MG/2 ML VIAL ONE (20:27)
[2022-10-04] MEDS ORDERED: Sodium Chloride 0.9% 1000 ML 1,000 ML IV SCH (20:30)
[2022-10-04] MEDS ORDERED: Hydromorphone 1 mg/ml Injection IV ONE ×2 (20:42→22:36)
[2022-10-04] MEDS ORDERED: Hydromorphone 1 mg/ml Injection ONE ×2 (20:42→22:25)
[2022-10-04 20:45] LABS: BASOPHIL % 1.2 % (0.0-0.4); Basophil (Absolute #) 0.05 x10^3/uL (0-0.4); Eosinophil % 1.9 % (0.00-5.0); Eosinophil (Absolute #) 0.08 x10^3/uL (0-0.5); Hematocrit 30.6 % (35-47); Hemoglobin 9.6 g/dL (12.0-16.0); IMMATURE GRAN # 0.01 x10^3u/L (0.00-0.03); IMMATURE GRAN % 0.2 % (0.00-0.4); Lymphocyte (Absolute #) 1.74 x10^3/uL (1.0-4.6); Lymphocytes % 41.8 % (24.0-44.0); Mean Cell Volume 94.2 fL (78-100); Mean Corpuscular Hemoglobin 29.5 pg (26-32); Mean Corpuscular Hgb Concent. 31.4 g/dL (32-36); Mean Platelet Volume 9.6 fL (7.5-11.0); Monocyte (Absolute #) 0.48 x10^3/uL (0.0-1.3); Monocytes % 11.5 % (0.0-12.0); Neutrophil % 43.4 % (36.0-66.0); Platelet Count 206 x10^3/uL (150-450); Red Blood Count 3.25 x10^6/uL (4.1-5.4); Red Cell Distribution Width 13.5 % (11.5-14.0); White Blood Count 4.2 x10^3/uL (4.0-10.5)
[2022-10-04 21:01] LABS: ALBUMIN 3.7 g/dL (3.5-5.0); ALKALINE PHOSPHATASE 55 U/L (38-126); ANION GAP 13.8 MEQ/L (5-15); BLOOD UREA NITROGEN 22 mg/dL (7-17); CHLORIDE 104 mmol/L (98-107); Calcium 8.7 mg/dL (8.4-10.2); Carbon Dioxide 23 mmol/L (22-30); EST GLOMERULAR FILTRATION RATE > 60.0 ML/MIN; Glucose 116 mg/dL (74-106); LIPASE 139 U/L (23-300); Potassium 3.7 mmol/L (3.5-5.1); SGOT/AST 19 U/L (14-36); SGPT/ALT 14 U/L (0-35); SODIUM 138 mmol/L (137-145); Total Protein 6.6 g/dL (6.3-8.2)
--- NOTE | 2022-10-04 21:28 | ERPHSYRPT ---
- History of Present Illness Time Seen by Provider: 10/04/22 21:27 Historian: patient Exam Limitations: no limitations Patient Subjective Stated Complaint: upper abd pain and nausea Triage Nursing Assessment: pt presents to ED via ambulance,pt alert and oriented x3, pt c/o upper abd pain that rates 10/10 pain, pt describes pain as pressure and constant, pt moaning and restless in cot, pt nauseated at this time, pt received 4 mg of zofran in route, pt has hx of ovarian cancer and has chemo tomorrow, NSR on EKG Physician History: Patient is a 77-year-old female presents for emergency department via EMS for evaluation of abdominal pain. Patient has a history of ovarian cancer. Patient currently on chemo scheduled for a chemo session tomorrow. Patient's abdominal pain began today. Pain progressively increased. Pain currently rated 10 out of 10. Patient describes pain as a pressure sensation that is constant. Patient appears very uncomfortable. She is restless. No trauma. No fever. Patient is nauseous. Patient vomiting several times. Patient denies chest pain or shortness of breath. Symptoms are progressive. Symptoms are moderate in intensity. No specific worsening improving factors. Patient voices no other complaints or concerns at this time. EMS administered 4 mg of Zofran in route. Patient's this is Timing/Duration: today Activities at Onset: none Quality: pressure Abdominal Pain Onset Location: epigastric Pain Radiation: no radiation Severity of Pain-Max: moderate Severity of Pain-Current: mild Modifying Factors: Improves With: nothing Associated Symptoms: nausea, vomiting Previous symptoms: no prior history Allergies/Adverse Reactions: [id number] Reductase Inhibitor [Puqgqyy-Unn-Lgp Reductase Inhibitor] Allergy (Verified 10/04/22 20:00) Lightheadedness Home Medications: Ascorbic Acid 500 mg [Vitamin C 500 MG] 500 mg PO DAILY 04/15/14 [History] Aspirin 81 gm Chew [Baby Aspirin 81 mg Chew] 81 mg PO DAILY 04/15/14 [History] Biotin 1 mcg PO DAILY 04/15/14 [History] Cholecalciferol (Vitamin D3) [Vitamin D] 2,000 unit PO DAILY 04/15/14 [History] Cinnamon Bark [Cinnamon] 1,000 mg PO DAILY 04/15/14 [History] Coconut Oil 1,000 mg PO DAILY 04/15/14 [History] Fish Oil/Dha/Epa [Fish Oil 1,200 mg Fish Oil] 1 each PO DAILY 04/15/14 [History] Lactobacillus Combination No.4 [Probiotic] 1 each PO HS 04/15/14 [History] Lutein 20 mg PO DAILY 04/15/14 [History] Magnesium Oxide/Magnesium [Magnesium 300 mg Capsule] 1 tab PO DAILY 04/15/14 [History] Metoprolol Tartrate 25 mg PO BID 04/15/14 [History] Ubidecarenone/Vit E Acet [Co Q-10 100 mg Softgel] 1 each PO DAILY 04/15/14 [History] ALPRAZolam 0.25 MG [xanAX 0.25 MG] 0.25 mg PO DAILY PRN 06/17/22 [History] Lisinopril 10 mg [Zestril 10 MG] 10 mg PO DAILY 06/17/22 [History] Ondansetron [Ondansetron Odt ] 4 mg SL Q6H PRN PRN 06/17/22 [History] Prochlorperazine Maleate [Compazine] 10 mg PO Q6HPRN PRN 06/17/22 [History] dexAMETHasone [Dexamethasone] 4 mg PO HS PRN PRN 06/17/22 [History] Hx Tetanus, Diphtheria Vaccination/Date Given: No Hx Influenza Vaccination/Date Given: No Hx Pneumococcal Vaccination/Date Given: No Travel Risk - International Travel Have you traveled outside of the country in past 3 weeks: No - Coronavirus Screening Are you exhibiting any of the following symptoms?: No Close contact with a COVID-19 positive Pt in past 14-21 Days: No - Vaccine Status Have you recieved a Covid-19 vaccination: No - Review of Systems Constitutional: No Symptoms, No Fever, No Chills Eyes: No Symptoms Ears, Nose, & Throat: No Symptoms Respiratory: No Symptoms, No Cough, No Dyspnea Cardiac: No Symptoms, No Chest Pain, No Edema, No Syncope Abdominal/Gastrointestinal: No Symptoms, No Abdominal Pain, No Nausea, No Vomiting, No Diarrhea Genitourinary Symptoms: No Symptoms, No Dysuria Musculoskeletal: No Symptoms, No Back Pain, No Neck Pain Skin: No Symptoms, No Rash Neurological: No Symptoms, No Dizziness, No Focal Weakness, No Sensory Changes Psychological: No Symptoms Endocrine: No Symptoms Hematologic/Lymphatic: No Symptoms Immunological/Allergic: No Symptoms All Other Systems: Reviewed and Negative - Past Medical History Pertinent Past Medical History: Yes Neurological History: No Pertinent History ENT History: Cataracts Cardiac History: High Cholesterol, Other Respiratory History: No Pertinent History Endocrine Medical History: Hypoglycemia Musculoskeletal History: No Pertinent History GI Medical History: No Pertinent History History: No Pertinent History Psycho-Social History: No Pertinent History Female Reproductive Disorders: Ovarian Cancer Other Medical History: states irreg. heart beat - Past Surgical History Past Surgical History: Yes Neuro Surgical History: No Pertinent History Cardiac: No Pertinent History Respiratory: No Pertinent History Gastrointestinal: No Pertinent History Genitourinary: No Pertinent History Musculoskeletal: Orthopedic Surgery Female Surgical History: Hysterectomy, Other Other Surgical History: left shoulder rotat.cuff repair",vaginal/uterine polyps removed" - Social History Smoking Status: Never smoker Exposure to second hand smoke: No Drug Use: none Patient Lives Alone: Yes - Nursing Vital Signs Nursing Vital Signs: Initial Vital Signs Temperature 97.3 F 10/04/22 20:01 Pulse Rate 65 10/04/22 20:01 Respiratory Rate 28 H 10/04/22 20:01 Blood Pressure 141/80 10/04/22 20:01 O2 Sat by Pulse Oximetry 100 10/04/22 20:01 Pain Scale Pain Intensity 7 - Physical Exam General Appearance: moderate distress, alert Eye Exam: PERRL/EOMI, eyes nml inspection Ears, Nose, Throat Exam: normal ENT inspection, TMs normal, pharynx normal, moist mucous membranes Neck Exam: normal inspection, non-tender, supple, full range of motion Respiratory Exam: normal breath sounds, lungs clear, airway intact, No respiratory distress Cardiovascular Exam: regular rate/rhythm, normal heart sounds, normal peripheral pulses Gastrointestinal/Abdomen Exam: soft, tenderness (Epigastric tenderness.), No mass Back Exam: normal inspection, normal range of motion, No CVA tenderness, No vertebral tenderness Extremity Exam: normal inspection, normal range of motion, pelvis stable Neurologic Exam: alert, oriented x 3, cooperative, sensation nml, No motor deficits Skin Exam: normal color, warm, dry Lymphatic Exam: No adenopathy SpO2 Interpretation: normal SpO2: 100 O2 Delivery: Room Air - Course Nursing assessment & vital signs reviewed: Yes EKG Interpreted by Me: RATE (65), Sinus Rhythm, NORMAL AXIS, NORMAL INTERVALS - CT Exams Abdomen/Pelvis CT Interpretation: Tele-radiologist Report (Compared to 07/31/2022, new markedly distended gallbladder with stable tiny stones and gravel. New moderate diffuse fecal stasis with rectal impaction. Previous mesenteric caking/testis is not seen.) Ordered Tests: Active Orders 24 hr Category Date Time Status EKG-ER Only STAT Care 10/04/22 20:27 Active IV Insertion STAT Care 10/04/22 20:23 Active IV Insertion-2nd Peripheral STAT Care 10/04/22 20:41 Active ABDOMEN AND PELVIS W/0 CONTRAS [CT] Stat Exams 10/04/22 20:23 Taken CBC W DIFF Stat Lab 10/04/22 20:35 Completed CMP Stat Lab 10/04/22 20:35 Completed LIPASE Stat Lab 10/04/22 20:35 Completed TROPONIN Q4H Lab 10/04/22 20:35 Completed TROPONIN Q4H Lab 10/05/22 00:40 Received TROPONIN Q4H Lab 10/05/22 04:30 Ordered UA W/RFX UR CULTURE Stat Lab 10/04/22 20:23 Ordered Transfer Order Routine Transfer 10/05/22 Ordered Medication Summary Generic Name Dose Route Start Last Admin Trade Name Freq PRN Reason Stop Dose Admin Sodium Chloride 1,000 mls @ 100 mls/hr 10/04/22 20:30 10/04/22 20:28 Sodium Chloride 0.9% 1000 Ml IV 11/03/22 20:29 100 mls/hr .Q10H MAHSA Administration Discontinued Medications Generic Name Dose Route Start Last Admin Trade Name Freq PRN Reason Stop Dose Admin Hydromorphone HCl 0.5 mg 10/04/22 20:42 10/04/22 20:47 Hydromorphone 1 Mg/1ml Inj 1 Mg/Ml Syringe IV 10/04/22 20:43 0.5 mg STAT ONE Administration Hydromorphone HCl Confirm 10/04/22 20:42 Hydromorphone 1 Mg/1ml Inj 1 Mg/Ml Syringe Administered 10/04/22 20:43 Dose 1 mg .ROUTE .STK-MED ONE Hydromorphone HCl Confirm 10/04/22 22:25 Hydromorphone 1 Mg/1ml Inj 1 Mg/Ml Syringe Administered 10/04/22 22:26 Dose 1 mg .ROUTE .STK-MED ONE Hydromorphone HCl 0.5 mg 10/04/22 22:36 10/04/22 22:37 Hydromorphone 1 Mg/1ml Inj 1 Mg/Ml Syringe IV 10/04/22 22:37 0.5 mg STAT ONE Administration Promethazine HCl 12.5 mg/ 100.5 mls @ 201 mls/hr 10/04/22 22:24 10/04/22 22:29 Sodium Chloride IV 10/04/22 22:53 201 mls/hr STAT ONE Administration Sodium Chloride Confirm 10/04/22 22:26 Sodium Chloride 0.9% Administered 10/04/22 22:27 Dose 100 mls @ ud .ROUTE .STK-MED ONE Morphine Sulfate 2 mg 10/04/22 20:23 10/04/22 20:30 Morphine Sulfate 2 Mg/Ml Inj IV 10/04/22 20:24 2 mg STAT ONE Administration Morphine Sulfate Confirm 10/04/22 20:27 Morphine Sulfate 2 Mg/Ml Inj Administered 10/04/22 20:28 Dose 2 mg .ROUTE .STK-MED ONE Ondansetron HCl 4 mg 10/04/22 20:23 10/04/22 20:29 Ondansetron Hcl 4 Mg/2 Ml Vial IV 10/04/22 20:24 4 mg STAT ONE Administration Ondansetron HCl Confirm 10/04/22 20:27 Ondansetron Hcl 4 Mg/2 Ml Vial Administered 10/04/22 20:28 Dose 4 mg .ROUTE .STK-MED ONE Promethazine HCl Confirm 10/04/22 22:25 Promethazine Hcl 25 Mg/Ml Vial Administered 10/04/22 22:26 Dose 25 mg .ROUTE .STK-MED ONE Lab/Rad Data: Laboratory Result Diagrams 10/04/22 20:35 10/04/22 20:35 Laboratory Results 10/04/22 10/04/22 10/04/22 Range/Units 23:45 20:35 20:35 WBC (4.0-10.5) x10^3/uL RBC (4.1-5.4) x10^6/uL Hgb (12.0-16.0) g/dL Hct (35-47) % MCV (78-100) fL MCH (26-32) pg MCHC (32-36) g/dL RDW (11.5-14.0) % Plt Count (150-450) x10^3/uL MPV (7.5-11.0) fL Gran % (36.0-66.0) % Immature Gran % (Auto) (0.00-0.4) % Nucleat RBC Rel Count (0.00-0.1) % Eos # (Auto) (0-0.5) x10^3/uL Immature Gran # (Auto) (0.00-0.03) x10^3u/L Absolute Lymphs (auto) (1.0-4.6) x10^3/uL Absolute Monos (auto) (0.0-1.3) x10^3/uL Absolute Nucleated RBC (0.00-0.01) x10^3u/L Lymphocytes % (24.0-44.0) % Monocytes % (0.0-12.0) % Eosinophils % (0.00-5.0) % Basophils % (0.0-0.4) % Absolute Granulocytes (1.4-6.9) x10^3/uL Basophils # (0-0.4) x10^3/uL Sodium 138 (137-145) mmol/L Potassium 3.7 (3.5-5.1) mmol/L Chloride 104 (98-107) mmol/L Carbon Dioxide 23 (22-30) mmol/L Anion Gap 13.8 (5-15) MEQ/L BUN 22 H (7-17) mg/dL Creatinine 0.80 (0.52-1.04) mg/dL Estimated GFR > 60.0 ML/MIN Glucose 116 H (74-106) mg/dL Calcium 8.7 (8.4-10.2) mg/dL Total Bilirubin 0.30 (0.2-1.3) mg/dL AST 19 (14-36) U/L ALT 14 (0-35) U/L Alkaline Phosphatase 55 (38-126) U/L Troponin I < 0.012 (0.000-0.034) ng/mL Serum Total Protein 6.6 (6.3-8.2) g/dL Albumin 3.7 (3.5-5.0) g/dL Lipase 139 (23-300) U/L Influenza Type A Ag NEGATIVE (NEGATIVE) Influenza Type B Ag NEGATIVE (NEGATIVE) RSV (PCR) NEGATIVE (Negative) SARS-CoV-2 (PCR) NEGATIVE (NEGATIVE) 10/04/22 Range/Units 20:35 WBC 4.2 (4.0-10.5) x10^3/uL RBC 3.25 L (4.1-5.4) x10^6/uL Hgb 9.6 L (12.0-16.0) g/dL Hct 30.6 L (35-47) % MCV 94.2 (78-100) fL MCH 29.5 (26-32) pg MCHC 31.4 L (32-36) g/dL RDW 13.5 (11.5-14.0) % Plt Count 206 (150-450) x10^3/uL MPV 9.6 (7.5-11.0) fL Gran % 43.4 (36.0-66.0) % Immature Gran % (Auto) 0.2 (0.00-0.4) % Nucleat RBC Rel Count 0.0 (0.00-0.1) % Eos # (Auto) 0.08 (0-0.5) x10^3/uL Immature Gran # (Auto) 0.01 (0.00-0.03) x10^3u/L Absolute Lymphs (auto) 1.74 (1.0-4.6) x10^3/uL Absolute Monos (auto) 0.48 (0.0-1.3) x10^3/uL Absolute Nucleated RBC 0.00 (0.00-0.01) x10^3u/L Lymphocytes % 41.8 (24.0-44.0) % Monocytes % 11.5 (0.0-12.0) % Eosinophils % 1.9 (0.00-5.0) % Basophils % 1.2 (0.0-0.4) % Absolute Granulocytes 1.80 (1.4-6.9) x10^3/uL Basophils # 0.05 (0-0.4) x10^3/uL Sodium (137-145) mmol/L Potassium (3.5-5.1) mmol/L Chloride (98-107) mmol/L Carbon Dioxide (22-30) mmol/L Anion Gap (5-15) MEQ/L BUN (7-17) mg/dL Creatinine (0.52-1.04) mg/dL Estimated GFR ML/MIN Glucose (74-106) mg/dL Calcium (8.4-10.2) mg/dL Total Bilirubin (0.2-1.3) mg/dL AST (14-36) U/L ALT (0-35) U/L Alkaline Phosphatase (38-126) U/L Troponin I (0.000-0.034) ng/mL Serum Total Protein (6.3-8.2) g/dL Albumin (3.5-5.0) g/dL Lipase (23-300) U/L Influenza Type A Ag (NEGATIVE) Influenza Type B Ag (NEGATIVE) RSV (PCR) (Negative) SARS-CoV-2 (PCR) (NEGATIVE) - Progress Progress: improved Progress Note: Case discussed with Dr. Hernandez general surgery who advises transferring patient to [facility] where patient's oncologist is on staff. He advised against antibiotics prophylactically as patient has no elevated white blood cell count. 10/04/22 22:[address] Gutierrez hospitalist at [facility] who accepts transfer. However they will not have beds available until tomorrow afternoon at the earliest. Dr. De Leon has will be the receiving physician and requested that we administer a dose of Zosyn antibiotic. 10/04/22 23:27 [facility] advises that they would not have any beds available until tomorrow afternoon at the earliest. We will admit patient to the floor under the care of Dr. Lozoya in the meantime. Plan of care discussed with patient. She agrees to admission at [facility] for further evaluation and treatment. 10/05/22 01:01 Patient is a 77-year-old female with a history of metastatic ovarian cancer presents to our ED via EMS for evaluation of epigastric pain. Patient symptoms are acute. Complexity of complaint is moderate. Physical exam reveals tenderness to the epigastrium. Tenderness to the right upper quadrant as well. Laboratory work-up includes EKG which was reviewed by Dr. Dumont. CBC CMP COVID study which was negative. Lipase negative. Troponin negative. Urinalysis negative for UTI. The results of the studies were used for medical decision making. Patient received a dose of morphine for pain control. However this was not sufficient. Patient then received 2 separate doses of Dilaudid. Patient continues to experience nausea and vomiting. Patient received a dose of Zofran for nausea however this was not very beneficial. A Phenergan drip for nausea was ordered. Patient also received sodium chloride to replace the losses due to vomiting. Level of EM service provider was moderate. Complexity of presenting problems is moderate. Complexity of data reviewed and analyzed is moderate. Risk of complication and or risk of morbidity/mortality of patient management was moderate. No critical care time. Patient served as independent historian. Portions of this note were created with voice recognition technology. There may be grammatical, spelling, punctuation or sound alike errors 10/05/22 01:09 Counseled pt/family regarding: lab results, diagnosis, rad results - Departure Departure Disposition: Observation Clinical Impression: Epigastric pain, Nausea and vomiting, Normocytic anemia, Distended gallbladder, History of metastatic ovarian cancer Condition: Stable Critical Care Time: No Referrals: NICHELLE HILL NP [Primary Care Provider] - Follow up/PCP as directed
[2022-10-04] MEDS ORDERED: Phenergan 25 MG INJ*** 12.5 MG in Sodium Chloride 0.9% 100 ML IV ONE (22:24)
[2022-10-04] MEDS ORDERED: Phenergan 25 MG INJ ONE (22:25)
[2022-10-04] MEDS ORDERED: Sodium Chloride 0.9% 100 ML ONE (22:26)
[2022-10-05 00:24] LABS: INFLUENZA A NEGATIVE (NEGATIVE); INFLUENZA B NEGATIVE (NEGATIVE); RESPIRATORY SYNCTIAL VIRUS NEGATIVE (Negative); SARS-CoV-2 Xpert Express NEGATIVE (NEGATIVE)
[2022-10-05] MEDS ORDERED: Hydromorphone 1 mg/ml Injection IV PRN (01:33)
[2022-10-05] MEDS ORDERED: Zofran 4 MG/2 ML VIAL IV PRN (01:33)
[2022-10-05 05:09] LABS: Absolute Neutrophil Ct (ANC) 5.07 x10^3/uL (1.4-6.9); BASOPHIL % 0.6 % (0.0-0.4); Basophil (Absolute #) 0.04 x10^3/uL (0-0.4); Eosinophil (Absolute #) 0.07 x10^3/uL (0-0.5); Hematocrit 29.3 % (35-47); Hemoglobin 9.3 g/dL (12.0-16.0); IMMATURE GRAN # 0.01 x10^3u/L (0.00-0.03); IMMATURE GRAN % 0.1 % (0.00-0.4); Lymphocytes % 16.9 % (24.0-44.0); Mean Cell Volume 94.8 fL (78-100); Mean Corpuscular Hemoglobin 30.1 pg (26-32); Mean Corpuscular Hgb Concent. 31.7 g/dL (32-36); Mean Platelet Volume 10.4 fL (7.5-11.0); Monocyte (Absolute #) 0.72 x10^3/uL (0.0-1.3); Monocytes % 10.1 % (0.0-12.0); Neutrophil % 71.3 % (36.0-66.0); Platelet Count 189 x10^3/uL (150-450); Red Blood Count 3.09 x10^6/uL (4.1-5.4); Red Cell Distribution Width 13.7 % (11.5-14.0); White Blood Count 7.1 x10^3/uL (4.0-10.5)
[2022-10-05] MEDS ORDERED: PIPERACILLIN/TAZOBACTAM IV ONE (05:17)
[2022-10-05] MEDS ORDERED: Sodium Chloride 100ML MINI-BAG PLUS 100 ML IV ONE (05:18)
[2022-10-05] MEDS: PIPERACILLIN/TAZOBACTAM 3.375 GM in Sodium Chloride 100ML MINI-BAG PLUS 100 ML IV SCH ×3 (05:23→17:35)
[2022-10-05 05:33] LABS: ALBUMIN 3.3 g/dL (3.5-5.0); ALKALINE PHOSPHATASE 53 U/L (38-126); ANION GAP 11.4 MEQ/L (5-15); BLOOD UREA NITROGEN 19 mg/dL (7-17); CHLORIDE 106 mmol/L (98-107); Calcium 8.3 mg/dL (8.4-10.2); Carbon Dioxide 25 mmol/L (22-30); EST GLOMERULAR FILTRATION RATE > 60.0 ML/MIN; Glucose 123 mg/dL (74-106); Potassium 3.9 mmol/L (3.5-5.1); SGOT/AST 25 U/L (14-36); SGPT/ALT 16 U/L (0-35); SODIUM 138 mmol/L (137-145); Total Protein 5.9 g/dL (6.3-8.2)
[2022-10-05] MEDS: Sodium Chloride 0.9% 1000 ML 1,000 ML IV SCH ×2 (08:43→17:19)
--- NOTE | 2022-10-05 08:50 | XRAY ---
Indication: Epigastric pain, nausea, and vomiting. History of ovarian cancer with chemotherapy. Multiple contiguous axial images obtained through the abdomen and pelvis without contrast. Comparison: July 31, 2022 Lung bases demonstrates minimal fibrosis/scarring. No suspicious pulmonary mass, infiltrate, or effusion. Heart not enlarged. Stomach is distended with food/fluid. Continued normal appendix. There is worsening moderate diffuse scattered colonic fecal debris throughout with new moderate rectal impaction. Also new abnormally distended gallbladder with stable tiny gallstones/gravel. Interval hysterectomy. Previous mesenteric omental caking not seen consistent with response to therapy. No free fluid/air. Remaining liver, pancreas, spleen, adrenal glands, kidneys, ureters, and bladder are unremarkable for noncontrast exam. Again mild aortoiliac calcifications without AAA. Osseous structures intact again with mild degenerative changes throughout the spine. Stable tiny left femur head bone island. Impression: 1. Worsening diffuse fecal stasis with new rectal impaction. 2. New distended gallbladder with stable tiny gallstones/gravel. 3. Again chronic findings including arteriosclerotic disease and chronic bony findings.
--- NOTE | 2022-10-05 09:24 | PCM.HP ---
History of Present Illness - Chief Complaint Chief Complaint: Dilated gallbladder, abdominal pain History of Present Illness: is a 77 year old female with a history of ovarian cancer currently on chemotherapy, she presented to the ER with epigastric pain and nausea and vomiting, found to have a distended gallbladder. She reports her pain has improved and she is comfortable this morning. - Review of Systems Constitutional: No Fever, No Chills Eyes: No Symptoms Ears, Nose, & Throat: No Symptoms Abdominal/Gastrointestinal: Abdominal Pain, Nausea, Vomiting Skin: No Rash All Other Systems: Reviewed and Negative Medications & Allergies Home Medications: Home Medication List Coconut Oil 1,000 mg PO DAILY 04/15/14 [History Confirmed 10/05/22] Lutein 20 mg PO DAILY 04/15/14 [History Confirmed 10/05/22] Metoprolol Tartrate 25 mg PO BID 04/15/14 [History Confirmed 10/05/22] ALPRAZolam 0.25 MG [xanAX 0.25 MG] 0.25 mg PO DAILY PRN 06/17/22 [History Confirmed 10/05/22] Ondansetron [Ondansetron Odt ] 4 mg SL UD PRN 06/17/22 [History Confirmed 10/05/22] Allergies/Adverse Reactions: Allergies Allergy/AdvReac Type Severity Reaction Status Date / Time Bgtnuoh-KQW-HeG Reductase Allergy Lightheaded Verified 10/04/22 20:00 Inhibitor ness [Ritlqgo-Tuf-Sgf Reductase Inhibitor] - Past Medical History Past Medical History: Yes Neurological History: TIA ENT History: Macular Degeneration Cardiac History: Arrhythmia Respiratory History: No Pertinent History Endocrine Medical History: Hypoglycemia Musculoskelatal History: No Pertinent History GI Medical History: No Pertinent History History: No Pertinent History Pyscho-Social History: Anxiety Reproductive Disorders: Ovarian Cancer Comment: states irreg. heart beat - Female History Are you now?: No - Past Surgical History Past Surgical History: Yes (Hysterectomy July 2022) Neuro Surgical History: No Pertinent History Cardiac History: No Pertinent History Respiratory Surgery: No Pertinent History GI Surgical History: No Pertinent History Genitourinary Surgical Hx: No Pertinent History Musculskeletal Surgical Hx: No Pertinent History Female Surgical History: Hysterectomy Other Surgical History: left shoulder rotat.cuff repair",vaginal/uterine polyps removed" - Social History Smoking Status: Never smoker Exposure to second hand smoke: No Alcohol: None Drug Use: none - Physical Exam Vital Signs: Vital Signs - 24 hr Temp Pulse Resp BP Pulse Ox 10/05/22 07:20 97.5 F 64 16 112/57 100 10/05/22 02:00 97.7 F 62 17 129/66 97 10/05/22 01:42 97.7 F 62 17 129/66 97 10/05/22 01:33 97 10/05/22 01:19 100 10/05/22 01:12 69 16 134/72 98 10/05/22 01:02 61 18 134/72 100 10/05/22 00:10 60 18 122/76 100 10/04/22 22:06 56 L 17 133/77 100 10/04/22 21:08 65 22 151/85 100 10/04/22 20:01 97.3 F 65 28 H 141/80 100 General Appearance: no apparent distress, thin Neurologic Exam: alert, oriented x 3 Respiratory Exam: normal breath sounds, lungs clear, No respiratory distress Cardiovascular Exam: regular rate/rhythm, normal heart sounds, normal peripheral pulses Gastrointestinal/Abdomen Exam: soft, No tenderness, No guarding, No rebound Extremity Exam: normal inspection, normal range of motion, pelvis stable Skin Exam: normal color, warm, dry, No rash Results - Labs Lab/Micro Results: Lab Results-Last 24 Hours 10/04/22 10/04/22 10/04/22 Range/Units 20:35 20:35 20:35 WBC 4.2 (4.0-10.5) x10^3/uL RBC 3.25 L (4.1-5.4) x10^6/uL Hgb 9.6 L (12.0-16.0) g/dL Hct 30.6 L (35-47) % MCV 94.2 (78-100) fL MCH 29.5 (26-32) pg MCHC 31.4 L (32-36) g/dL RDW 13.5 (11.5-14.0) % Plt Count 206 (150-450) x10^3/uL MPV 9.6 (7.5-11.0) fL Gran % 43.4 (36.0-66.0) % Immature Gran % (Auto) 0.2 (0.00-0.4) % Nucleat RBC Rel Count 0.0 (0.00-0.1) % Eos # (Auto) 0.08 (0-0.5) x10^3/uL Immature Gran # (Auto) 0.01 (0.00-0.03) x10^3u/L Absolute Lymphs (auto) 1.74 (1.0-4.6) x10^3/uL Absolute Monos (auto) 0.48 (0.0-1.3) x10^3/uL Absolute Nucleated RBC 0.00 (0.00-0.01) x10^3u/L Lymphocytes % 41.8 (24.0-44.0) % Monocytes % 11.5 (0.0-12.0) % Eosinophils % 1.9 (0.00-5.0) % Basophils % 1.2 (0.0-0.4) % Absolute Granulocytes 1.80 (1.4-6.9) x10^3/uL Basophils # 0.05 (0-0.4) x10^3/uL Sodium 138 (137-145) mmol/L Potassium 3.7 (3.5-5.1) mmol/L Chloride 104 (98-107) mmol/L Carbon Dioxide 23 (22-30) mmol/L Anion Gap 13.8 (5-15) MEQ/L BUN 22 H (7-17) mg/dL Creatinine 0.80 (0.52-1.04) mg/dL Estimated GFR > 60.0 ML/MIN Glucose 116 H (74-106) mg/dL Calcium 8.7 (8.4-10.2) mg/dL Total Bilirubin 0.30 (0.2-1.3) mg/dL AST 19 (14-36) U/L ALT 14 (0-35) U/L Alkaline Phosphatase 55 (38-126) U/L Troponin I < 0.012 (0.000-0.034) ng/mL Serum Total Protein 6.6 (6.3-8.2) g/dL Albumin 3.7 (3.5-5.0) g/dL Lipase 139 (23-300) U/L Influenza Type A Ag (NEGATIVE) Influenza Type B Ag (NEGATIVE) RSV (PCR) (Negative) SARS-CoV-2 (PCR) (NEGATIVE) 10/04/22 10/05/22 10/05/22 Range/Units 23:45 00:40 04:49 WBC (4.0-10.5) x10^3/uL RBC (4.1-5.4) x10^6/uL Hgb (12.0-16.0) g/dL Hct (35-47) % MCV (78-100) fL MCH (26-32) pg MCHC (32-36) g/dL RDW (11.5-14.0) % Plt Count (150-450) x10^3/uL MPV (7.5-11.0) fL Gran % (36.0-66.0) % Immature Gran % (Auto) (0.00-0.4) % Nucleat RBC Rel Count (0.00-0.1) % Eos # (Auto) (0-0.5) x10^3/uL Immature Gran # (Auto) (0.00-0.03) x10^3u/L Absolute Lymphs (auto) (1.0-4.6) x10^3/uL Absolute Monos (auto) (0.0-1.3) x10^3/uL Absolute Nucleated RBC (0.00-0.01) x10^3u/L Lymphocytes % (24.0-44.0) % Monocytes % (0.0-12.0) % Eosinophils % (0.00-5.0) % Basophils % (0.0-0.4) % Absolute Granulocytes (1.4-6.9) x10^3/uL Basophils # (0-0.4) x10^3/uL Sodium (137-145) mmol/L Potassium (3.5-5.1) mmol/L Chloride (98-107) mmol/L Carbon Dioxide (22-30) mmol/L Anion Gap (5-15) MEQ/L BUN (7-17) mg/dL Creatinine (0.52-1.04) mg/dL Estimated GFR ML/MIN Glucose (74-106) mg/dL Calcium (8.4-10.2) mg/dL Total Bilirubin (0.2-1.3) mg/dL AST (14-36) U/L ALT (0-35) U/L Alkaline Phosphatase (38-126) U/L Troponin I < 0.012 < 0.012 (0.000-0.034) ng/mL Serum Total Protein (6.3-8.2) g/dL Albumin (3.5-5.0) g/dL Lipase (23-300) U/L Influenza Type A Ag NEGATIVE (NEGATIVE) Influenza Type B Ag NEGATIVE (NEGATIVE) RSV (PCR) NEGATIVE (Negative) SARS-CoV-2 (PCR) NEGATIVE (NEGATIVE) 10/05/22 10/05/22 Range/Units 04:49 04:49 WBC 7.1 (4.0-10.5) x10^3/uL RBC 3.09 L (4.1-5.4) x10^6/uL Hgb 9.3 L (12.0-16.0) g/dL Hct 29.3 L (35-47) % MCV 94.8 (78-100) fL MCH 30.1 (26-32) pg MCHC 31.7 L (32-36) g/dL RDW 13.7 (11.5-14.0) % Plt Count 189 (150-450) x10^3/uL MPV 10.4 (7.5-11.0) fL Gran % 71.3 H (36.0-66.0) % Immature Gran % (Auto) 0.1 (0.00-0.4) % Nucleat RBC Rel Count 0.0 (0.00-0.1) % Eos # (Auto) 0.07 (0-0.5) x10^3/uL Immature Gran # (Auto) 0.01 (0.00-0.03) x10^3u/L Absolute Lymphs (auto) 1.20 (1.0-4.6) x10^3/uL Absolute Monos (auto) 0.72 (0.0-1.3) x10^3/uL Absolute Nucleated RBC 0.00 (0.00-0.01) x10^3u/L Lymphocytes % 16.9 L (24.0-44.0) % Monocytes % 10.1 (0.0-12.0) % Eosinophils % 1.0 (0.00-5.0) % Basophils % 0.6 (0.0-0.4) % Absolute Granulocytes 5.07 (1.4-6.9) x10^3/uL Basophils # 0.04 (0-0.4) x10^3/uL Sodium 138 (137-145) mmol/L Potassium 3.9 (3.5-5.1) mmol/L Chloride 106 (98-107) mmol/L Carbon Dioxide 25 (22-30) mmol/L Anion Gap 11.4 (5-15) MEQ/L BUN 19 H (7-17) mg/dL Creatinine 0.70 (0.52-1.04) mg/dL Estimated GFR > 60.0 ML/MIN Glucose 123 H (74-106) mg/dL Calcium 8.3 L (8.4-10.2) mg/dL Total Bilirubin 0.30 (0.2-1.3) mg/dL AST 25 (14-36) U/L ALT 16 (0-35) U/L Alkaline Phosphatase 53 (38-126) U/L Troponin I (0.000-0.034) ng/mL Serum Total Protein 5.9 L (6.3-8.2) g/dL Albumin 3.3 L (3.5-5.0) g/dL Lipase (23-300) U/L Influenza Type A Ag (NEGATIVE) Influenza Type B Ag (NEGATIVE) RSV (PCR) (Negative) SARS-CoV-2 (PCR) (NEGATIVE) - Radiology Impressions Radiology Exams & Impressions: Radiology Procedures Category Date Time Status ABDOMEN AND PELVIS W/0 CONTRAS [CT] Stat Exams 10/04/22 20:23 Completed Assessment/Plan (1) Epigastric pain Current Visit: Yes Status: Acute Assessment & Plan: improved since admission Code(s): R10.13 - EPIGASTRIC PAIN (2) Malignant neoplasm of ovary Current Visit: Yes Status: Acute Assessment & Plan: follows with Dr Meza (3) Gallstone Current Visit: Yes Status: Acute Assessment & Plan: gravel/stone with distended gallbladder, surgery consulted. Code(s): K80.20 - CALCULUS OF GALLBLADDER W/O CHOLECYSTITIS W/O OBSTRUCTION (4) Nausea and vomiting Current Visit: Yes Status: Acute Code(s): R11.2 - NAUSEA WITH VOMITING, UNSPECIFIED
[2022-10-05] MEDS ORDERED: PROTONIX 40 MG IV IV SCH (10:00)
[2022-10-05] MEDS ORDERED: xanAX 0.25 MG PO PRN (10:33)
[2022-10-05] MEDS ORDERED: Lopressor 25MG Tab PO SCH (11:00)
[2022-10-05 16:37] VITALS: BP 115/58; PULSE 74; O2SAT 94
== END 2022-10-05 17:55 | disposition home or self-care (01) ==
LOC: ED 19:58 → MED SURG 10-05 01:30
PROVIDERS: ADMIT Family Medicine; ATTEND Family Medicine
DX: R10.13 Epigastric pain (principal); C56.9 Malignant neoplasm of unspecified ovary; K80.20 Calculus of gallbladder without cholecystitis without obstruction; R11.2 Nausea with vomiting, unspecified; Z79.899 Other long term (current) drug therapy; Z20.828 Contact with and (suspected) exposure to other viral communicable diseases
CPT/HCPCS: 0241U; 36000; 36415; 74176; 80053; 83690; 84484; 85025; 93005; 96374; 96375; 96376; 93268; 99285; J1170; J2270; J2405; J2550; G0378

== ENCOUNTER 2023-07-18 06:47 | Emergency (ER) | payer MEDICARE, OTHER ==
[2023-07-18 07:27] VITALS: RESP 20; TEMP 97.5; O2SAT 96
--- NOTE | 2023-07-18 07:50 | ERPHSYRPT ---
- History of Present Illness Time Seen by Provider: 07/18/23 07:20 Source: patient, family Exam Limitations: no limitations Patient Subjective Stated Complaint: pt states that she wasn't able to get her pain under control after taking her 15mg po morphine at 0500. states when pain didn't go away she called her grand daughter who then called 911. upon EMS arrival family and pt stated that patient was a hospice pt for ovarian CA, EMS staff offered to call her hospice nurse for advice and that the patient hadn't taken her PRN morphine (she had forgotten she had taken it at 0600). Since pt stated she hadn't had her PRN morphine EMS suggested she take her PRN morphine w griselda they called her hospice nurse. pt took 15mg po morphine at 0600 then remembered that she had taken it so she took 30mg po morphine in a one hour time frame and EMS suggested she come to ED for evaluation due to extra morphine taken. Triage Nursing Assessment: pt brought into room 4 via EMS stretcher and pulled over onto ED cot with EMS staff x2. pt is alert and oriented times three, able to speak in complete sentences, able to move all extremities, and with resp even and unlabored. pt denies pain or nausea at this time. abdomen is soft, nontender to palpation, nondistended, and with positive bowel sounds in all quadrants. LBM earlier this am. pt denies cp, sob, difficulty breathing, lightheadedness, dizziness, or other other complaints. pt states she doesn't want to have any labs or imaging completed but is ok if the doctor wants to evaluate her to ensure she is ok. Dr uDmont notified of pt's status and request. Physician History: This is a 78-year-old white female patient who was recently diagnosed with stage IV ovarian cancer and is placed in hospice. She was started on MS Contin 15 mg extended release tablets. She was having pain last evening and took Tylenol for this. However she woke up with significant lower abdominal pain at 445 and took an MS Contin 15 mg extended release tablet. An hour later she did not recall whether she took the Tylenol at 445 or MSN Contin 15 mg extended release at 445. Therefore, at 545 this morning, she took a second MS Contin. We contacted the ambulance/paramedics who encouraged her to come to the emergency department. At that point, the patient had no complaints of abdominal pain and did not want to come to the emergency department. However, because she took 2 of the MS Contin 15 mg extended release tablets within an hour's time she agreed to come to emergency department to be monitored and evaluated. Patient arrives to the emergency department vital signs stable, including room air oxygen saturation level 97% and has no abdominal pain. Patient arrived to the emergency department at 6:44 AM. Timing/Duration: today Severity: mild Associated Symptoms: denies symptoms Allergies/Adverse Reactions: Civwiaq-NIH-ZyH Reductase Inhibitor [Wsypydq-Knc-Sdw Reductase Inhibitor] Allergy (Verified 07/18/23 06:50) Lightheadedness Home Medications: Metoprolol Tartrate 25 mg PO DAILY 04/15/14 [History] Hx Tetanus, Diphtheria Vaccination/Date Given: Yes Hx Influenza Vaccination/Date Given: No Hx Pneumococcal Vaccination/Date Given: No Immunizations Up to Date: Yes Travel Risk - International Travel Have you traveled outside of the country in past 3 weeks: No - Coronavirus Screening Are you exhibiting any of the following symptoms?: No Close contact with a COVID-19 positive Pt in past 14-21 Days: No - Vaccine Status Have you recieved a Covid-19 vaccination: No - Review of Systems Constitutional: No Symptoms Eyes: No Symptoms Ears, Nose, & Throat: No Symptoms Respiratory: No Symptoms Cardiac: No Symptoms Abdominal/Gastrointestinal: No Symptoms Genitourinary Symptoms: No Symptoms Musculoskeletal: No Symptoms Skin: No Symptoms Neurological: No Symptoms Psychological: No Symptoms Endocrine: No Symptoms Hematologic/Lymphatic: No Symptoms All Other Systems: Reviewed and Negative - Past Medical History Pertinent Past Medical History: Yes Neurological History: TIA ENT History: Macular Degeneration Cardiac History: Arrhythmia Respiratory History: No Pertinent History Endocrine Medical History: Hypoglycemia Musculoskeletal History: No Pertinent History GI Medical History: No Pertinent History History: No Pertinent History Psycho-Social History: Anxiety Female Reproductive Disorders: Ovarian Cancer Other Medical History: states irreg. heart beat - Past Surgical History Past Surgical History: Yes (Hysterectomy July 2022) Neuro Surgical History: No Pertinent History Cardiac: No Pertinent History Respiratory: No Pertinent History Gastrointestinal: No Pertinent History Genitourinary: No Pertinent History Musculoskeletal: No Pertinent History Female Surgical History: Hysterectomy Other Surgical History: left shoulder rotat.cuff repair",vaginal/uterine polyps removed" - Social History Smoking Status: Never smoker Exposure to second hand smoke: No Drug Use: none Patient Lives Alone: Yes - Nursing Vital Signs Nursing Vital Signs: Initial Vital Signs Pulse Rate 73 07/18/23 06:44 Respiratory Rate 18 07/18/23 06:44 Blood Pressure 119/76 07/18/23 06:44 O2 Sat by Pulse Oximetry 98 07/18/23 06:44 Pain Scale Pain Intensity 0 - Physical Exam General Appearance: no apparent distress, alert Eye Exam: PERRL/EOMI, eyes nml inspection Ears, Nose, Throat Exam: normal ENT inspection, moist mucous membranes Neck Exam: normal inspection, non-tender, supple, full range of motion Respiratory Exam: normal breath sounds, lungs clear, airway intact, No chest tenderness, No respiratory distress Cardiovascular Exam: regular rate/rhythm, normal heart sounds, normal peripheral pulses Gastrointestinal/Abdomen Exam: soft, normal bowel sounds, No tenderness Pelvic Exam: not done Rectal Exam: not done Back Exam: normal inspection, normal range of motion, No CVA tenderness, No vertebral tenderness Extremity Exam: normal inspection, normal range of motion, pelvis stable Neurologic Exam: alert, oriented x 3, cooperative, breastfeeding program coordinator II-XII nml as tested, normal mood/affect, nml cerebellar function, nml station & gait, sensation nml Skin Exam: normal color, warm, dry Lymphatic Exam: No adenopathy SpO2 Interpretation: normal SpO2: 96 O2 Delivery: Room Air - Course Nursing assessment & vital signs reviewed: Yes - Progress Progress: improved Progress Note: 07/18/23 08:06 This patient's medical issue is 1 of low complexity. Level complex in the workup performed is based on review of the patient's past medical history, review the patient's medication list, review the patient's drug allergy list, history of present illness and physical findings on examination. This patient has been diagnosed with stage IV ovarian cancer. She is in hospice. The dosing of MS Contin 15 mg extended release for cancer pain is variable from person to person. It has been approximately 2 and half hours since her last dose of MS Contin. She is hemodynamically stable and oxygenating well. She is awake alert and oriented. Her pain is under control. She does not want any workup. I am not convinced she needs a workup. We will discharge her to home. 07/18/23 08:11 Counseled pt/family regarding: diagnosis Medical Desision Making - Independent Historian Additional History obtained from: Child - Diagnostic Testing Diagnostic test were ordered, analyzed, and reviewed by me: No - Risk of complications Low Risk: Low risk of morbidity from additional dx testing or treatment - Departure Departure Disposition: Home Clinical Impression: Encounter for medical screening examination Condition: Stable Critical Care Time: No Referrals: NICHELLE HILL NP [Primary Care Provider] - Follow up/PCP as directed
[2023-07-18 08:20] VITALS: BP 107/65; PULSE 74
== END 2023-07-18 08:36 | disposition home or self-care (01) ==
LOC: ED 06:47
DX: Z03.6 Encounter for observation for suspected toxic effect from ingested substance ruled out (principal); C56.9 Malignant neoplasm of unspecified ovary; Z79.891 Long term (current) use of opiate analgesic; Z79.899 Other long term (current) drug therapy; Z28.310 Unvaccinated for COVID-19
CPT/HCPCS: 36000; 99283